=== PATIENT | male | born 1935 | race Two or more races ===

== ENCOUNTER 2018-01-02 07:11 | Inpatient (IN) | payer MEDICARE, OTHER ==
[~2018-01-02] VITALS: Ht 172.7 cm; Wt 83.0 kg
[~2018-01-02 07:11] MED LIST: CARB25TA22 PO; CIPR-173 PO; GABA300C11 PO; MEMA1TAB2 PO; METR500T PO; PRED1PAK7 PO; ROPI0.5T18 PO; TRAM50TA2 PO
[2018-01-02] MEDS ORDERED: SODIUM CHLORIDE 0.9% 1,000 ML IV ONE (07:52)
[2018-01-02] MEDS ORDERED: KETOROLAC TROMETH 30 MG/ML 1ML VIAL IV ONE (08:00)
[2018-01-02] MEDS ORDERED: METOCLOPRAMIDE HCL 5MG/ml INJ 2ml VIAL IV ONE (08:00)
[2018-01-02 08:17] LABS: Basophils # (auto) 0.1 uL; Basophils % (auto) 0.7 % (0.0-2.0); Eosinophils # (auto) 0.1 uL; Eosinophils % (auto) 1.3 % (0.0-7.0); Hematocrit 47.2 % (41.0-53.0); Hemoglobin 15.5 g/dL (13.5-17.5); Lymphocytes # (auto) 1.1 uL; Lymphocytes % (auto) 14.5 % (10.0-50.0); Mean Corpuscular Hemoglobin 29.4 pg (28.0-32.0); Mean Corpuscular Hgb Conc. 32.9 g/dL (32.0-36.0); Mean Corpuscular Volume 89.4 fL (80.0-100.0); Monocytes # (auto) 0.6 uL; Monocytes % (auto) 7.7 % (0.0-12.0); Neutrophils # (auto) 5.9 uL; Neutrophils % (auto) 75.8 % (37.0-80.0); Nucleated Red Blood Cells % 0.1 %; Platelet Count (auto) 163 10^3/uL (140-450); Red Blood Cells 5.27 10^6/uL (4.5-5.90); Red Cell Distribution Width 17.2 % (11.8-14.3); White Blood Cell 7.7 10^3/uL (4.4-10.8)
[2018-01-02 08:28] LABS: Albumin 3.4 g/dL (3.4-5.0); BUN/Creatinine Ratio 24.8; Calcium 8.7 mg/dL (8.5-10.1); Magnesium 2.1 mg/dL (1.6-2.6); Potassium 4.1 mmol/L (3.5-5.1)
[2018-01-02 08:30] LABS: Bilirubin, Total 0.5 mg/dL (0.2-1.0); Total Protein 7.3 g/dL (6.4-8.2)
[2018-01-02 11:03] LABS: Urine Bacteria MOD /hpf (None Seen); Urine Blood TRACE /uL (Negative); Urine Mucus FEW (None Seen); Urine Specific Gravity 1.022 (1.001-1.035); Urine WBC 45 /hpf (0 - 3)
[2018-01-02] MEDS ORDERED: LORazepam 2MG/ML-1ML VIAL IV ONE (11:30)
[2018-01-02] MEDS ORDERED: predniSONE 5 MG TAB PO ONE (13:00)
[2018-01-02] MEDS ORDERED: SENNA 8.6 MG TAB PO PRN (13:00)
[2018-01-02] MEDS ORDERED: cefTRIAXone 1GM/10ml IVPUSH 10 ML IV ONE (13:00)
[2018-01-02] MEDS ORDERED: MORPHINE SULFATE 4 MG/ML SYR/VIAL IV PRN (13:15)
[2018-01-02] MEDS ORDERED: DOCUSATE SOD 100 MG CAP PO PRN (13:15)
[2018-01-02] MEDS ORDERED: ONDANSETRON HCL 4 MG/2 ML VIAL IV PRN (13:15)
[2018-01-02] MEDS ORDERED: LORazepam 2MG/ML-1ML VIAL IV PRN (13:15)
[2018-01-02] MEDS ORDERED: ACETAMINOPHEN 325 MG TAB PO PRN (13:15)
[2018-01-02] MEDS: SODIUM CHLOR 0.9% PF (SALINE LOCK) 10ML VIAL/SYR IV SCH ×2 (13:55→22:20)
[2018-01-02] MEDS: GABAPENTIN 300 MG CAP PO SCH ×2 (13:56→22:00)
[2018-01-02] MEDS: CARBIDOPA W LEVODOPA 25/100mg TABLET PO SCH ×2 (13:56→22:00)
[2018-01-02] MEDS ORDERED: POTA10TA51 PO (15:21)
[2018-01-02] MEDS ORDERED: OMEP20TA PO (15:21)
[2018-01-02] MEDS ORDERED: LORA-654 PO (15:21)
[2018-01-02] MEDS ORDERED: FURO20TA3 PO (15:21)
[2018-01-02] MEDS ORDERED: SENN1TAB14 PO (15:21)
[2018-01-02] MEDS: VOLTAREN 1% TOP SCH ×2 (18:00→22:00)
[2018-01-02] MEDS: FAMOTIDINE 20 MG TAB PO SCH (22:00)
[2018-01-02] MEDS: MEMANTINE HCL 5 MG TAB PO SCH (22:00)
[2018-01-03] MEDS: traMADol HCL 50 MG TAB PO PRN ×4 (03:15→22:02)
[2018-01-03 05:11] LABS: Hematocrit 44.1 % (41.0-53.0); Hemoglobin 14.5 g/dL (13.5-17.5); Mean Corpuscular Hemoglobin 29.5 pg (28.0-32.0); Mean Corpuscular Hgb Conc. 32.9 g/dL (32.0-36.0); Mean Corpuscular Volume 89.6 fL (80.0-100.0); Platelet Count (auto) 160 10^3/uL (140-450); Red Blood Cells 4.92 10^6/uL (4.5-5.90); Red Cell Distribution Width 16.9 % (11.8-14.3); White Blood Cell 7.6 10^3/uL (4.4-10.8)
[2018-01-03 05:18] LABS: Basophils % (manual) 0 (0.0-2.0); Blast Cells 0; Eosinophils % (manual) 0 (0-7); Metamyelocytes % 0; Myelocytes % 0; Promyelocytes % 0; Reactive Lymphocytes 0
[2018-01-03 05:31] LABS: Albumin 2.9 g/dL (3.4-5.0); BUN/Creatinine Ratio 25.5; Calcium 8.1 mg/dL (8.5-10.1); Potassium 3.8 mmol/L (3.5-5.1)
[2018-01-03 05:33] LABS: Bilirubin, Total 0.8 mg/dL (0.2-1.0)
[2018-01-03 06:00] LABS: Band Neutrophils % (manual) 2; Lymphocytes % (manual) 19 (10.0-50.0); Monocytes % (manual) 3 (0-12)
[2018-01-03] MEDS: SODIUM CHLOR 0.9% PF (SALINE LOCK) 10ML VIAL/SYR IV SCH ×3 (06:00→20:59)
[2018-01-03] MEDS: VOLTAREN 1% TOP SCH ×4 (06:00→21:02)
[2018-01-03] MEDS: CARBIDOPA W LEVODOPA 25/100mg TABLET PO SCH ×3 (06:55→20:52)
[2018-01-03] MEDS: GABAPENTIN 300 MG CAP PO SCH ×3 (06:55→20:52)
[2018-01-03 09:00] VITALS: BP 130/70
[2018-01-03] MEDS: FAMOTIDINE 20 MG TAB PO SCH ×2 (10:00→20:51)
[2018-01-03] MEDS: cefTRIAXone 1GM/10ml IVPUSH 10 ML IV SCH (10:35)
[2018-01-03] MEDS: MEMANTINE HCL 5 MG TAB PO SCH ×2 (10:36→20:51)
[2018-01-03] MEDS: predniSONE 5 MG TAB PO SCH (10:36)
[2018-01-03] MEDS: POTASSIUM CHLORIDE 8 MEQ TAB PO SCH (10:37)
[2018-01-03] MEDS: MULTIPLE VITAMIN TAB PO SCH (10:37)
[2018-01-03] MEDS: FUROSEMIDE 20 MG TAB PO SCH (10:39)
[2018-01-03] MEDS ORDERED: MEPERIDINE HCL (50 MG/ML) 1 ML VIAL IM ONE (11:30)
[2018-01-03] MEDS: MEPERIDINE HCL (50 MG/ML) 1 ML VIAL IM PRN ×2 (11:46→15:01)
[2018-01-03 13:00] VITALS: BP 91/61
[2018-01-03 17:00] VITALS: BP 135/78
[2018-01-03] MEDS ORDERED: MEPERIDINE HCL (50 MG/ML) 1 ML VIAL IV PRN (17:00)
[2018-01-03] MEDS: LORazepam 0.5 MG TAB PO PRN (20:52)
[2018-01-03 21:38] VITALS: BP 117/65
[2018-01-04] MEDS: LORazepam 0.5 MG TAB PO PRN (03:01)
[2018-01-04] MEDS: traMADol HCL 50 MG TAB PO PRN (04:40)
[2018-01-04 04:41] VITALS: BP 128/68
[2018-01-04] MEDS: CARBIDOPA W LEVODOPA 25/100mg TABLET PO SCH ×2 (05:12→16:05)
[2018-01-04] MEDS: SODIUM CHLOR 0.9% PF (SALINE LOCK) 10ML VIAL/SYR IV SCH ×2 (05:15→14:00)
[2018-01-04] MEDS: VOLTAREN 1% TOP SCH ×2 (05:16→12:00)
[2018-01-04] MEDS: GABAPENTIN 300 MG CAP PO SCH ×2 (06:00→16:05)
[2018-01-04 06:25] LABS: Hematocrit 43.2 % (41.0-53.0); Hemoglobin 14.9 g/dL (13.5-17.5); Mean Corpuscular Hemoglobin 30.6 pg (28.0-32.0); Mean Corpuscular Hgb Conc. 34.4 g/dL (32.0-36.0); Platelet Count (auto) 154 10^3/uL (140-450); Red Blood Cells 4.86 10^6/uL (4.5-5.90); Red Cell Distribution Width 16.7 % (11.8-14.3); White Blood Cell 7.6 10^3/uL (4.4-10.8)
[2018-01-04 06:29] LABS: Blast Cells 0; Metamyelocytes % 0; Promyelocytes % 0; Reactive Lymphocytes 0
[2018-01-04 06:45] LABS: Potassium 3.6 mmol/L (3.5-5.1)
[2018-01-04 07:05] LABS: BUN/Creatinine Ratio 21.3; Calcium 8.3 mg/dL (8.5-10.1)
[2018-01-04 07:50] LABS: Band Neutrophils % (manual) 1; Basophils % (manual) 1 (0.0-2.0); Eosinophils % (manual) 1 (0-7); Lymphocytes % (manual) 19 (10.0-50.0); Monocytes % (manual) 8 (0-12); Myelocytes % 1
[2018-01-04 09:00] VITALS: BP 94/64
[2018-01-04] MEDS: predniSONE 5 MG TAB PO SCH (09:18)
[2018-01-04] MEDS: FAMOTIDINE 20 MG TAB PO SCH (09:18)
[2018-01-04] MEDS: cefTRIAXone 1GM/10ml IVPUSH 10 ML IV SCH (09:18)
[2018-01-04] MEDS: MULTIPLE VITAMIN TAB PO SCH (09:18)
[2018-01-04] MEDS: MEMANTINE HCL 5 MG TAB PO SCH (09:19)
[2018-01-04] MEDS: POTASSIUM CHLORIDE 8 MEQ TAB PO SCH (10:00)
[2018-01-04] MEDS: FUROSEMIDE 20 MG TAB PO SCH (10:00)
[2018-01-04 13:00] VITALS: BP 99/50
[2018-01-04 14:26] VITALS: BP 130/70
[2018-01-04 16:36] VITALS: BP 146/83
== END 2018-01-04 17:38 | disposition hospice, home (50) | DRG 552 ==
LOC: EDBD 07:11 → ER 07:11 → EDSEX 07:11 → OVERFLOW 07:12 → EAST 01-03 09:16
PROVIDERS: ADMIT Internal Medicine; ATTEND Internal Medicine
DX: S22.089A Unspecified fracture of T11-T12 vertebra, initial encounter for closed fracture (principal); E44.0 Moderate protein-calorie malnutrition; F02.81 Dementia in other diseases classified elsewhere, unspecified severity, with behavioral disturbance; N39.0 Urinary tract infection, site not specified; M54.2 Cervicalgia; I11.9 Hypertensive heart disease without heart failure; G20 Parkinson's disease; F03.90 Unspecified dementia, unspecified severity, without behavioral disturbance, psychotic disturbance, mood disturbance, and anxiety; C80.1 Malignant (primary) neoplasm, unspecified; K21.9 Gastro-esophageal reflux disease without esophagitis; J44.9 Chronic obstructive pulmonary disease, unspecified; M54.5 Low back pain; W18.30XA Fall on same level, unspecified, initial encounter; C61 Malignant neoplasm of prostate; M19.90 Unspecified osteoarthritis, unspecified site; Z85.46 Personal history of malignant neoplasm of prostate; W19.XXXA Unspecified fall, initial encounter; Z98.1 Arthrodesis status; Z68.27 Body mass index [BMI] 27.0-27.9, adult; Y93.89 Activity, other specified; Y92.89 Other specified places as the place of occurrence of the external cause; Y99.8 Other external cause status
CPT/HCPCS: 36415; 71045; 72125; 72128; 72148; 80048; 80053; 81001; 83735; 85007; 85025; 85027; 87086; 87088; 87186; 94761; 96361; 96374; 96375; 97116; 97163; 97530; J0696; J1885; J2405